=== PATIENT | male | born 1980 | race Caucasian/White ===

== ENCOUNTER 2018-10-04 08:17 | Day surgery (SDC) | payer OTHER ==
[2018-10-04] MEDS: SOD CHLORIDE 0.9% 1,000 ML IV (11:10)
[2018-10-04] MEDS: LIDOCAINE 1% (MPF) 5 ML VIAL (11:50)
[2018-10-04] MEDS: MIDAZOLAM 1 MG/ML 2 ML INJ (11:50)
[2018-10-04] MEDS: FENTAnyl 50 MCG/ML VIAL (11:52)
[2018-10-04] MEDS: GELATIN 12MM X 7 MM SPONGE (12:05)
== END 2018-10-04 13:58 | disposition home or self-care (01) ==
LOC: SDS 08:17
DX: N17.0 Acute kidney failure with tubular necrosis (principal); E85.89 Other amyloidosis
CPT/HCPCS: 50200; 77012

== ENCOUNTER 2019-02-04 09:09 | Day surgery (SDC) | payer OTHER ==
[2019-02-04] MEDS ORDERED: FENTAnyl 50 MCG/ML VIAL (12:07)
[2019-02-04] MEDS ORDERED: MIDAZOLAM 1 MG/ML 2 ML INJ (12:08)
[2019-02-04] MEDS ORDERED: LIDOCAINE 1% (MPF) 5 ML VIAL (12:09)
[2019-02-04] MEDS ORDERED: CEFAZOLIN 1 GM INJ (13:22)
[2019-02-04] MEDS ORDERED: PROPOFOL 20 ML (13:52)
[2019-02-04] MEDS ORDERED: PROVENTIL HFA 6.7GM INHALER (13:52)
== END 2019-02-04 16:14 | disposition home or self-care (01) ==
LOC: SDS 09:09
DX: E85.9 Amyloidosis, unspecified (principal); D61.818 Other pancytopenia; N18.9 Chronic kidney disease, unspecified; E55.9 Vitamin D deficiency, unspecified
CPT/HCPCS: 38221; 77012; 88305; 88311; 88313